=== PATIENT | male | born 1995 | race Caucasian/White ===

== ENCOUNTER 2018-02-21 15:23 | Inpatient (IN) | payer OTHER ==
[2018-02-21] MEDS ORDERED: HYDROmorphONE/DILAUDID 1 MG/ML INJ IVP ONE (15:28)
[2018-02-21 15:50] LABS: PLATELET COUNT 292 10^3/uL (150-400)
[2018-02-21 15:58] LABS: INR 1.13 (0.83-1.16); PROTIME(PATIENT) 14.7 SEC (12.0-15.0)
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
[2018-02-21] MEDS ORDERED: ONDANSETRON DISINTEGRATING 4 MG TAB PO PRN (16:37)
[2018-02-21] MEDS ORDERED: ONDANSETRON 4 MG/2 ML VIAL IVP PRN (16:37)
[2018-02-21] MEDS ORDERED: ACETAMINOPHEN 325 MG TAB PO PRN (16:37)
[2018-02-21] MEDS ORDERED: TETANUS, DIPHTHERIA TOX (7YR+) 0.5 ML INJ IM ONE (16:42)
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
[2018-02-21] MEDS: HYDROCODONE/APAP 5/325 TAB PO PRN ×2 (17:50→18:57)
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
[2018-02-21] MEDS: IBUPROFEN 600 MG TAB PO SCH (22:18)
[2018-02-21] MEDS: BACITRACIN ZINC 14.2 GM OINTTUBE TP SCH (22:19)
[2018-02-22] MEDS: HYDROCODONE/APAP 5/325 TAB PO PRN ×3 (01:12→12:35)
[2018-02-22] MEDS: IBUPROFEN 600 MG TAB PO SCH ×4 (06:07→22:25)
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
[2018-02-22] MEDS ORDERED: LIDO/EPI 1% **Not for Epidural 20 ML MDV ONE (10:02)
[2018-02-22] MEDS ORDERED: LIDOCAINE 1% 300 MG/30 ML SDV ONE (10:02)
--- NOTE | 2018-02-22 10:14 | SOAPPROG ---
SOAP Progress Note Assessment/Plan: Assessment: Left lateral tibial plateau fx, medial condyle femur fx Plan: OR tomorrow at 7:30 for ORIF NWB LLE NPO at midnight 02/22/18 10:13 Subjective: pain in left knee Objective: Vital Signs Temp Pulse Resp BP Pulse Ox 37 C 100 14 138/75 H 95 02/22/18 09:59 02/22/18 09:59 02/22/18 09:59 02/22/18 09:59 02/22/18 09:59 02/21/18 02/22/18 02/23/18 05:59 05:59 05:59 Intake Total 475 Output Total 700 Balance -225 PT 14.7 SEC (12.0-15.0) 02/21/18 15:39 INR 1.13 (0.83-1.16) 02/21/18 15:39 in splint ICD10 Worksheet Patient Problems: Problems Problem Status Onset Femoral distal fracture Acute Pneumothorax on right Acute Ribs, multiple fractures Acute Right pulmonary contusion Acute Tibial plateau fracture, left Acute
[2018-02-22] MEDS ORDERED: NS 500 ML IV ONE (10:18)
[2018-02-22] MEDS ORDERED: fentaNYL 100 MCG/2 ML INJ ONE (10:20)
[2018-02-22] MEDS ORDERED: MIDAZOLAM 2 MG/2 ML VIAL ONE (10:20)
[2018-02-22] MEDS ORDERED: MIDAZOLAM 2 MG/2 ML VIAL IVP ONE (10:45)
[2018-02-22] MEDS ORDERED: fentaNYL 100 MCG/2 ML INJ IVP ONE (10:45)
--- NOTE | 2018-02-22 11:12 | POSTOPPROG ---
Post Op Note Date of Operation: 02/22/18 Surgeon: Hitesh Saavedra Anesthesia: IV Sedation Pre-op Diagnosis: RT HEMO-PNEUMO Post-op Diagnosis: SAME Indication: ENLARGING HEMO-PNEUMO, PENDING GEN ANESTH Procedure: RT TUBE THORACOSTOMY Findings: SYMMETRIC BS Inf/Abcess present in the surg proc area at time of surgery?: No Depth: Organ Space EBL: Minimal Complications: 0 Drains: Constavac
--- NOTE | 2018-02-22 11:43 | GOP ---
[f rep st] OPERATIVE REPORT DATE OF OPERATION: 02/22/2018 SURGEON: Hitesh Saavedra MD PREOPERATIVE DIAGNOSIS: Enlarging hemopneumothorax on the right and rib fractures. POSTOPERATIVE DIAGNOSIS: Enlarging hemopneumothorax on the right and rib fractures. PROCEDURE PERFORMED: Right tube thoracostomy. FINDINGS: Patient was found to have resolution of pneumothorax with minimal hemothorax drainage. Ch est x-ray is pending. DESCRIPTION OF PROCEDURE: Patient was in the special procedure room and received IV sedation with Ve rsed and fentanyl. Anesthetized with 1% Xylocaine. A short incision made in the 6th intercostal spa ce in the midaxillary line. Dissection carried down to the intercostal muscles, which were then pene trated bluntly releasing pneumothorax and some old blood. A 24 chest tube was inserted without diffi culty and secured to the exit site with 2-0 silk suture and connected to a Pleur-Evac drainage system . The wound was dressed and secured with tape. He tolerated the procedure quite well. There were n o complications. /[id number]/MODL
[2018-02-22] MEDS: BACITRACIN ZINC 14.2 GM OINTTUBE TP SCH ×2 (12:28→22:25)
[2018-02-22] MEDS ORDERED: ceFAZolin 2 GM/DEXTROSE 100 ML IV ONE (15:52)
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
[2018-02-22] MEDS: oxyCODONE IR 5 MG TAB PO PRN (18:12)
--- NOTE | 2018-02-22 20:51 | SOAPPROG ---
SOAP Progress Note Assessment/Plan: Assessment: seen today with my paMichelle/ please refer to her note quite comfortable despite multiple rib fxs and tib plateau fx bs decreased on the right cxr shows enlarging hemo-pneumo in light of pending general anesthesia recommend chest tube placement prop/ risks and options fully discussed Plan:right tube thoracostomy 02/22/18 20:48 Objective: Vital Signs Temp Pulse Resp BP Pulse Ox 36.7 C 69 19 117/78 98 02/22/18 15:21 02/22/18 15:21 02/22/18 15:21 02/22/18 15:21 02/22/18 15:21 02/21/18 02/22/18 02/23/18 05:59 05:59 05:59 Intake Total 475 250 Output Total 700 900 Balance -225 -650 PT 14.7 SEC (12.0-15.0) 02/21/18 15:39 INR 1.13 (0.83-1.16) 02/21/18 15:39 ICD10 Worksheet Patient Problems: Problems Problem Status Onset Femoral distal fracture Acute Pneumothorax on right Acute Ribs, multiple fractures Acute Right pulmonary contusion Acute Tibial plateau fracture, left Acute
[2018-02-23] MEDS: oxyCODONE IR 5 MG TAB PO PRN ×2 (00:54→11:49)
[2018-02-23] MEDS ORDERED: LR 1,000 ML IV ONE (06:15)
[2018-02-23] MEDS ORDERED: BUPIVACAINE/EPI 0.5% 30 ML SDV ONE (06:50)
[2018-02-23] MEDS ORDERED: ceFAZolin 2 GM/DEXTROSE 100 ML IV ONE (07:00)
--- NOTE | 2018-02-23 07:09 | SOAPPROG ---
SOAP Progress Note Assessment/Plan: Assessment: Left lateral tibial plateau fx, medial condyle femur fx Plan: OR today for ORIF NWB LLE NPO at midnight 02/22/18 10:13 02/23/18 07:08 Subjective: pain controlled Objective: Vital Signs Temp Pulse Resp BP Pulse Ox 37 C 101 H 17 124/79 H 97 02/23/18 06:38 02/23/18 06:38 02/23/18 06:38 02/23/18 06:38 02/23/18 06:38 02/22/18 02/23/18 02/24/18 05:59 05:59 05:59 Intake Total 475 250 Output Total 700 900 Balance -225 -650 PT 14.7 SEC (12.0-15.0) 02/21/18 15:39 INR 1.13 (0.83-1.16) 02/21/18 15:39 splint intact ICD10 Worksheet Patient Problems: Problems Problem Status Onset Femoral distal fracture Acute Pneumothorax on right Acute Ribs, multiple fractures Acute Right pulmonary contusion Acute Tibial plateau fracture, left Acute
[2018-02-23] MEDS ORDERED: MIDAZOLAM 2 MG/2 ML VIAL IVP ONE (07:13)
[2018-02-23] MEDS ORDERED: MIDAZOLAM 2 MG/2 ML VIAL ONE (07:14)
--- NOTE | 2018-02-23 07:14 | PDANEPAE ---
ANE Past Medical History - Cardiovascular History Hx Hypertension: No Hx Arrhythmias: No Hx Chest Pain: No Hx Coronary Artery / Peripheral Vascular Disease: No Hx CHF / Valvular Disease: No Hx Palpitations: No - Pulmonary History Hx COPD: No Hx Asthma/Reactive Airway Disease: No Hx Recent Upper Respiratory Infection: No Hx Oxygen in Use at Home: No Hx Sleep Apnea: No Sleep Apnea Screening Result - Last Documented: Positive Pulmonary History Comment: Pneumothorax, right, chest tube in place - Endocrine History Hx Diabetes: No Hypothyroid: No Hyperthyroid: No Obesity: no ANE Review of Systems Review of Systems: ANE Patient History - Allergies Allergies/Adverse Reactions: No Known Allergies Allergy (Unverified 02/21/18 15:34) - Home Medications Home Medications: NK [No Known Home Meds] 02/21/18 [Last Taken Unknown] - NPO status NPO Since - Liquids (Date): 02/23/18 NPO Since - Liquids (Time): 00:00 NPO Since - Solids (Date): 02/23/18 NPO Since - Solids (Time): 00:00 - Smoking Hx Smoking Status: Never smoked ANE Labs/Vital Signs - Labs Result Diagrams: 02/21/18 15:39 - Vital Signs Blood Pressure: 124/79 Heart Rate: 101 Respiratory Rate: 17 O2 Sat (%): 97 Height: 190.5 cm Weight: 65.771 kg ANE Physical Exam - Airway Neck exam: FROM Mallampati Score: Class 1 Mouth exam: normal dental/mouth exam - Pulmonary Pulmonary: no respiratory distress - Cardiovascular Cardiovascular: regular rate and rhythym - ASA Status ASA Status: III ANE Anesthesia Plan Anesthesia Plan: GA w LMA
[2018-02-23] MEDS ORDERED: PROPOFOL 200 MG/20 ML VIAL ONE ×2 (07:24)
[2018-02-23] MEDS ORDERED: fentaNYL 250 MCG/5 ML INJ ONE (07:24)
[2018-02-23] MEDS ORDERED: LIDOCAINE 2% 5 ML SDV ONE (07:26)
[2018-02-23] MEDS ORDERED: ONDANSETRON 4 MG/2 ML VIAL ONE (07:48)
[2018-02-23] MEDS ORDERED: DEXAMETHASONE 4 MG/ML VIAL ONE (07:48)
[2018-02-23] MEDS ORDERED: PHENYLEPHRINE HCL 100 MCG/ML SYR ONE (07:52)
[2018-02-23] MEDS ORDERED: ePHEDrine SULFATE 25 MG/5 ML SYR ONE (07:57)
[2018-02-23] MEDS ORDERED: HYDROmorphONE/DILAUDID 2 MG/ML INJ ONE (09:00)
--- NOTE | 2018-02-23 09:22 | POSTOPPROG ---
Post Op Note Date of Operation: 02/23/18 Surgeon: Eduardo Puri Air Pollution Compliance Inspector: Elinor Anesthesiologist: Anesthesia: GET(General Endotracheal) Pre-op Diagnosis: left tibial plateau fx Post-op Diagnosis: same Indication: above Procedure: orif L plateau fx Inf/Abcess present in the surg proc area at time of surgery?: No EBL: 50-100
[2018-02-23] MEDS ORDERED: KETOROLAC 30 MG/1 ML SDV ONE (09:34)
[2018-02-23] MEDS ORDERED: PROMETHAZINE HCL 25 MG/ML INJ IVP PRN (09:58)
[2018-02-23] MEDS ORDERED: LR 500 ML IV PRN (09:58)
[2018-02-23] MEDS ORDERED: NALOXONE HCL 0.4 MG/ML INJ IVP PRN (09:58)
[2018-02-23] MEDS ORDERED: fentaNYL 100 MCG/2 ML INJ IVP PRN (09:58)
--- NOTE | 2018-02-23 10:00 | POSTANESTH ---
Post Anesthetic Evaluation Cardiovascular Status: Normal, Stable Respiratory Status: Normal, Stable Level of Consciousness/Mental Status: Mildly Sleepy, Arousable Pain Control: Adequate, Prn Tx Ordered Nausea/Vomiting Control: Adequate, Prn Tx Ordered Complications Possibly Related to Anesthesia: None Noted
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
[2018-02-23] MEDS: BACITRACIN ZINC 14.2 GM OINTTUBE TP SCH ×2 (12:40→20:04)
[2018-02-23] MEDS: IBUPROFEN 600 MG TAB PO SCH ×3 (12:40→22:26)
[2018-02-23] MEDS ORDERED: NS 500 ML IV ONE (13:21)
[2018-02-23] MEDS: HYDROmorphONE/DILAUDID 2 MG TAB PO PRN ×3 (13:52→22:27)
[2018-02-23] MEDS: LIDOCAINE 4%/MENTHOL 1% PATCH TD SCH (13:52)
--- NOTE | 2018-02-23 14:03 | TRAUMAPNT ---
Trauma Tertiary Progress Note New Findings: No new findings Assessment/Plan: PAD#2 02/23/2018 Assessment: Pain control is an issue. Chest: No air leak, tiny apical PTX on CXR, 200 cc out in last 24 hours Urine output low and mild increase in HR noted Knee: Per Dr. Puri Plan: Meds adjusted Will encourage po intake and will give IV NS bolus Continue chest tube suction and reassess with CXR and output Subjective: No complaints ( at this point the family and nurse indicate that he is a stoic and is not reporting actual pain level) Flatus but no stool Objective: Vital Signs Temp Pulse Resp BP Pulse Ox 36.6 C 101 H 17 124/74 H 96 02/23/18 13:04 02/23/18 13:04 02/23/18 13:04 02/23/18 13:04 02/23/18 13:04 02/22/18 02/23/18 02/24/18 05:59 05:59 05:59 Intake Total 338 021 3827 Output Total 700 900 100 Balance -225 -650 1710 PT 14.7 SEC (12.0-15.0) 02/21/18 15:39 INR 1.13 (0.83-1.16) 02/21/18 15:39 Physical Exam - Physical Exam General Appearance: WD/WN, alert, no apparent distress Neck: non-tender, full range of motion, supple Respiratory: lungs clear, normal breath sounds Cardiac/Chest: regular rate, rhythm Abdomen: normal bowel sounds, non-tender, soft Male Genitalia: deferred Rectal: deferred Back: Normal inspection Skin: normal color, warm/dry Extremities: normal range of motion, non-tender, other (Knee immobilizer on left leg) Neuro/Psych: no motor/sensory deficits, alert, normal mood/affect, oriented x 3 Time Spent w/Patient (minutes): 25
[2018-02-23 14:47] LABS: PLATELET COUNT 132 10^3/uL (150-400)
[2018-02-23] MEDS: ACETAMINOPHEN 500 MG TAB PO SCH ×2 (15:42→22:26)
[2018-02-23] MEDS ORDERED: LIDOCAINE 2% JELLY 20 ML (UROJECT) ONE (17:22)
[2018-02-23] MEDS: PATCH REMOVAL 1 EA PATCH TD SCH (20:04)
[2018-02-24] MEDS: HYDROmorphONE/DILAUDID 2 MG TAB PO PRN ×5 (03:07→23:06)
[2018-02-24] MEDS: CYCLOBENZAPRINE 10 MG TAB PO PRN ×2 (04:23→14:26)
[2018-02-24] MEDS: IBUPROFEN 600 MG TAB PO SCH ×3 (05:52→21:07)
[2018-02-24] MEDS: ACETAMINOPHEN 500 MG TAB PO SCH ×3 (05:52→21:07)
[2018-02-24] MEDS: LIDOCAINE 4%/MENTHOL 1% PATCH TD SCH (09:41)
[2018-02-24] MEDS: BACITRACIN ZINC 14.2 GM OINTTUBE TP SCH ×2 (09:41→21:08)
--- NOTE | 2018-02-24 16:53 | SOAPPROG ---
SOAP Progress Note Assessment/Plan: Assessment: Left lateral tibial plateau fx, medial condyle femur fx s/p orif Plan: non weight bearing Left leg ice elevate keep dry may remove brace when at rest f/u with me in 1 week Subjective: pain in knee Objective: Vital Signs Temp Pulse Resp BP Pulse Ox 36.8 C 101 H 18 125/68 H 98 02/24/18 16:00 02/24/18 16:00 02/24/18 16:00 02/24/18 16:00 02/24/18 16:00 Laboratory Results 02/23/18 14:10 02/24/18 05:05 02/23/18 02/24/18 02/25/18 05:59 05:59 05:59 Intake Total 250 3110 Output Total 900 2350 650 Balance -650 760 -650 PT 14.7 SEC (12.0-15.0) 02/21/18 15:39 INR 1.13 (0.83-1.16) 02/21/18 15:39 dressing cdi ICD10 Worksheet Patient Problems: Problems Problem Status Onset Femoral distal fracture Acute Pneumothorax on right Acute Ribs, multiple fractures Acute Right pulmonary contusion Acute Tibial plateau fracture, left Acute
--- NOTE | 2018-02-24 19:52 | TRAUMAPN ---
Trauma Progress Note Assessment/Plan: PAD#2 02/23/2018 Assessment: Pain control is an issue. Chest: No air leak, tiny apical PTX on CXR, 200 cc out in last 24 hours Urine output low and mild increase in HR noted Knee: Per Dr. Puri Plan: Meds adjusted Will encourage po intake and will give IV NS bolus Continue chest tube suction and reassess with CXR and output 02/24/2018 Assessment: CXR- lung up! No stool. Plan: Off suction qand check CXR tomorrow afternoon Will suggest gentle physic ( one quart Apple juice over 10 minutes) Subjective: No bowel movements Objective: Vital Signs Temp Pulse Resp BP Pulse Ox 36.8 C 101 H 18 125/68 H 98 02/24/18 16:00 02/24/18 16:00 02/24/18 16:00 02/24/18 16:00 02/24/18 16:00 Laboratory Results 02/23/18 14:10 02/24/18 05:05 02/23/18 02/24/18 02/25/18 05:59 05:59 05:59 Intake Total 250 3110 3000 Output Total 900 2350 2000 Balance -053 568 6923 PT 14.7 SEC (12.0-15.0) 02/21/18 15:39 INR 1.13 (0.83-1.16) 02/21/18 15:39 Physical Exam - Physical Exam General Appearance: WD/WN, alert, no apparent distress Neck: full range of motion, supple, normal inspection Respiratory: lungs clear, normal breath sounds Cardiac/Chest: regular rate, rhythm Abdomen: normal bowel sounds, non-tender, soft Male Genitalia: deferred Rectal: deferred Back: Normal inspection Skin: normal color, warm/dry Extremities: normal range of motion, non-tender, normal inspection Neuro/Psych: no motor/sensory deficits, alert, normal mood/affect, oriented x 3 Time Spent w/Patient (minutes): 15
[2018-02-24] MEDS: PATCH REMOVAL 1 EA PATCH TD SCH (21:07)
[2018-02-25] MEDS: HYDROmorphONE/DILAUDID 2 MG TAB PO PRN (03:41)
[2018-02-25] MEDS: IBUPROFEN 600 MG TAB PO SCH (05:50)
[2018-02-25] MEDS: ACETAMINOPHEN 500 MG TAB PO SCH ×3 (05:51→23:10)
[2018-02-25] MEDS ORDERED: NS 500 ML IV ONE (09:00)
[2018-02-25 09:09] LABS: PLATELET COUNT 165 10^3/uL (150-400)
[2018-02-25] MEDS: LIDOCAINE 4%/MENTHOL 1% PATCH TD SCH (10:41)
[2018-02-25] MEDS: HYDROmorphONE/DILAUDID 4 MG TAB PO PRN ×3 (10:43→20:43)
[2018-02-25] MEDS: OXYMETAZOLINE 30 ML NASAL SPRAY EACHNARE SCH ×2 (10:48→20:29)
[2018-02-25] MEDS: BACITRACIN ZINC 14.2 GM OINTTUBE TP SCH ×2 (10:50→20:29)
[2018-02-25] MEDS ORDERED: IBUPROFEN 600 MG TAB PO SCH (12:00)
[2018-02-25] MEDS: IBUPROFEN 200 MG TAB PO SCH ×3 (13:28→23:10)
--- NOTE | 2018-02-25 14:33 | ASMTCMCOM ---
CM Note CM Note Notes: PT/OT rec home, [facility] rec follow up call. Pt to d/c independent [facility] notified pt he can access classroom accommodations through [facility] and OT informed pt he may need to contact disability services for assistance with mobility around campus. CM will follow. Date Signed: 02/25/2018 02:32 PM Electronically Signed By:EVERARDO Simmons
--- NOTE | 2018-02-25 17:13 | SOAPPROG ---
SOAP Progress Note Assessment/Plan: Assessment: Left lateral tibial plateau fx, medial condyle femur fx s/p orif Plan: non weight bearing Left leg ice elevate keep dry may remove brace when at rest f/u with me in 1 week Subjective: pain improving Objective: Vital Signs Temp Pulse Resp BP Pulse Ox 36.9 C 92 14 130/74 H 99 02/25/18 15:53 02/25/18 15:53 02/25/18 15:53 02/25/18 15:53 02/25/18 15:53 Laboratory Results 02/25/18 09:00 02/24/18 05:05 02/24/18 02/25/18 02/26/18 05:59 05:59 05:59 Intake Total 3110 4600 Output Total 2350 2805 Balance 760 1795 PT 14.7 SEC (12.0-15.0) 02/21/18 15:39 INR 1.13 (0.83-1.16) 02/21/18 15:39 rom 20-60 deg ICD10 Worksheet Patient Problems: Problems Problem Status Onset Femoral distal fracture Acute Pneumothorax on right Acute Ribs, multiple fractures Acute Right pulmonary contusion Acute Tibial plateau fracture, left Acute
--- NOTE | 2018-02-25 18:51 | TRAUMAPN ---
Trauma Progress Note Assessment/Plan: PAD#2 02/23/2018 Assessment: Pain control is an issue. Chest: No air leak, tiny apical PTX on CXR, 200 cc out in last 24 hours Urine output low and mild increase in HR noted Knee: Per Dr. Puri Plan: Meds adjusted Will encourage po intake and will give IV NS bolus Continue chest tube suction and reassess with CXR and output 02/24/2018 Assessment: CXR- lung up! No stool. Plan: Off suction and check CXR tomorrow afternoon Will suggest gentle physic ( one quart Apple juice over 10 minutes) PAD#4 02/25/2018 Assessment; Chest: No air leak, minimal chest tube output. There is a tiny residual PTX. Chest tube removed as I do not feel that the chest tube will address the tiny PTX. The family understands that a PTX tube may have to be placed anteriorly. Short course of Afrin worked well to decrease nasal congestion. No stool yet Plan: F/u CXR in 24 hours. Hope to be able to discharge to [place] on Thursday Will try more aggressive approach with a physic Subjective: I feel much better Objective: Vital Signs Temp Pulse Resp BP Pulse Ox 36.9 C 92 14 130/74 H 99 02/25/18 15:53 02/25/18 15:53 02/25/18 15:53 02/25/18 15:53 02/25/18 15:53 Laboratory Results 02/25/18 09:00 02/24/18 05:05 02/24/18 02/25/18 02/26/18 05:59 05:59 05:59 Intake Total 3110 4600 Output Total 2350 2805 Balance 760 1795 PT 14.7 SEC (12.0-15.0) 02/21/18 15:39 INR 1.13 (0.83-1.16) 02/21/18 15:39 Physical Exam - Physical Exam General Appearance: WD/WN, alert, no apparent distress Respiratory: chest non-tender, lungs clear, normal breath sounds Cardiac/Chest: regular rate, rhythm Abdomen: normal bowel sounds, non-tender, soft Male Genitalia: deferred Rectal: deferred Back: Normal inspection Skin: normal color, warm/dry Extremities: other (left knee brace in place) Neuro/Psych: no motor/sensory deficits, alert, normal mood/affect, oriented x 3 Time Spent w/Patient (minutes): 25
[2018-02-25] MEDS ORDERED: MAGNESIUM CITRATE 300 ML BOTTLE PO ONE (18:54)
[2018-02-25] MEDS: POLYETHYLENE GLYCOL 3350 17 GM PKT PO SCH (20:29)
[2018-02-25] MEDS: PATCH REMOVAL 1 EA PATCH TD SCH (20:30)
[2018-02-26] MEDS: HYDROmorphONE/DILAUDID 4 MG TAB PO PRN ×3 (02:46→15:01)
[2018-02-26] MEDS: IBUPROFEN 200 MG TAB PO SCH ×4 (06:03→23:21)
[2018-02-26] MEDS: ACETAMINOPHEN 500 MG TAB PO SCH ×2 (06:03→15:01)
[2018-02-26] MEDS: BACITRACIN ZINC 14.2 GM OINTTUBE TP SCH ×2 (08:12→21:55)
[2018-02-26] MEDS: OXYMETAZOLINE 30 ML NASAL SPRAY EACHNARE SCH ×2 (08:13→21:55)
[2018-02-26] MEDS: POLYETHYLENE GLYCOL 3350 17 GM PKT PO SCH ×2 (08:14→22:02)
[2018-02-26] MEDS: LIDOCAINE 4%/MENTHOL 1% PATCH TD SCH (08:16)
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
[2018-02-26] MEDS: HYDROmorphONE/DILAUDID 2 MG TAB PO PRN ×2 (19:19→23:21)
[2018-02-26] MEDS: PATCH REMOVAL 1 EA PATCH TD SCH (21:55)
[2018-02-27] MEDS: HYDROmorphONE/DILAUDID 2 MG TAB PO PRN ×4 (04:11→16:18)
[2018-02-27] MEDS: ACETAMINOPHEN 500 MG TAB PO SCH ×3 (04:39→13:41)
[2018-02-27] MEDS: IBUPROFEN 200 MG TAB PO SCH ×2 (06:26→12:08)
[2018-02-27 09:50] VITALS: BP 122/68
[2018-02-27] MEDS: LIDOCAINE 4%/MENTHOL 1% PATCH TD SCH (09:53)
[2018-02-27] MEDS: CYCLOBENZAPRINE 10 MG TAB PO PRN (10:21)
[2018-02-27] MEDS: BACITRACIN ZINC 14.2 GM OINTTUBE TP SCH (10:21)
[2018-02-27] MEDS: POLYETHYLENE GLYCOL 3350 17 GM PKT PO SCH (10:26)
--- NOTE | 2018-02-27 11:34 | TRAUMAPN ---
Trauma Progress Note Assessment/Plan: PAD#2 02/23/2018 Assessment: Pain control is an issue. Chest: No air leak, tiny apical PTX on CXR, 200 cc out in last 24 hours Urine output low and mild increase in HR noted Knee: Per Dr. Puri Plan: Meds adjusted Will encourage po intake and will give IV NS bolus Continue chest tube suction and reassess with CXR and output 02/24/2018 Assessment: CXR- lung up! No stool. Plan: Off suction and check CXR tomorrow afternoon Will suggest gentle physic ( one quart Apple juice over 10 minutes) PAD#4 02/25/2018 Assessment; Chest: No air leak, minimal chest tube output. There is a tiny residual PTX. Chest tube removed as I do not feel that the chest tube will address the tiny PTX. The family understands that a PTX tube may have to be placed anteriorly. Short course of Afrin worked well to decrease nasal congestion. No stool yet Plan: F/u CXR in 24 hours. Hope to be able to discharge to [facility] on Thursday Will try more aggressive approach with a physic PAD#6 02/27/2018 Assessment: Lung up on CXR, minimal effusion noted Plan: discharge when ortho agrees Objective: Vital Signs Temp Pulse Resp BP Pulse Ox 37 C 72 16 122/68 H 97 02/27/18 08:00 02/27/18 08:00 02/27/18 08:00 02/27/18 08:00 02/27/18 08:00 Laboratory Results 02/25/18 09:00 02/24/18 05:05 02/26/18 02/27/18 02/28/18 05:59 05:59 05:59 Intake Total 1500 1850 Output Total 800 700 Balance 700 1150 PT 14.7 SEC (12.0-15.0) 02/21/18 15:39 INR 1.13 (0.83-1.16) 02/21/18 15:39
--- NOTE | 2018-02-27 12:14 | GDS ---
[f rep st] DISCHARGE SUMMARY This is a conditional discharge. It depends upon Dr. Puri agreeing that he is set to go. DISPOSITION: To home, self-care. CONDITION: Good. DIETARY RECOMMENDATIONS: Are no restriction on his diet, but I have suggested he avoid bananas, rice, applesauce, and cheese. Texture is unrestricted. MEDICATIONS: Tylenol 1000 mg every 8 hours. He will use Flexeril 10 mg every 8 hours as needed for spasm and Dilaudid 2 mg every 4 hours as needed for pain. He will also use a Lidoderm patch. He will take MiraLAX 34 g twice a day for constipation. ACTIVITY: Nonweightbearing left leg. He will ice and elevate the knee. Keep it dry. He is to remove the brace when at rest. FOLLOWUP: He can follow up with Dr. Puri in 1 week. He will follow up with Dr. Fuentes in 1 week as well when she will remove the chest tube stitch. HOSPITAL COURSE: The patient was admitted. He has had right rib fractures with pneumothorax and hemo/hydrothorax. The pneumothorax finally resolved completely. The drainage of the chest tube minimized. The chest tube has now been out for about 40 hours, and there is a minimal right pleural effusion noted. I do not feel it needs to be addressed at this point. He underwent surgical correction of a left knee injury: 1) Left knee arthroscopy with removal of a foreign body 2) Left knee open treatment and arthroscopic treatrment of a medial femoral condyle fracture 3) Left knee open reduction, internal fixation of left tibial plateau fracture. He is comfortable from a pain standpoint. He originally had planned to go to [place], but now has decided it would make more sense to not go home, but rather stay in [place] to complete his physical therapy and his followup appointments with Dr. Puri and Dr. Fuentes. /[id number]/MODL MTDD
== END 2018-02-27 16:35 | disposition home or self-care (01) | DRG 958 ==
LOC: F3N 17:38
PROVIDERS: ADMIT Surgery; ATTEND Surgery
PROC: 0W9930Z Drainage of Right Pleural Cavity with Drainage Device, Percutaneous Approach (ICD-10-PCS; 2018-02-22)
PROC: 0QSH04Z Reposition Left Tibia with Internal Fixation Device, Open Approach (ICD-10-PCS; principal; 2018-02-23 07:15)
PROC: 0SCD4ZZ Extirpation of Matter from Left Knee Joint, Percutaneous Endoscopic Approach (ICD-10-PCS; principal; 2018-02-23 07:15)
PROC: 0QBC4ZZ Excision of Left Lower Femur, Percutaneous Endoscopic Approach (ICD-10-PCS; principal; 2018-02-23 07:15)
DX: S82.142A Displaced bicondylar fracture of left tibia, initial encounter for closed fracture (principal); S72.435A Nondisplaced fracture of medial condyle of left femur, initial encounter for closed fracture; S83.412A Sprain of medial collateral ligament of left knee, initial encounter; M23.42 Loose body in knee, left knee; S22.41XA Multiple fractures of ribs, right side, initial encounter for closed fracture; S27.321A Contusion of lung, unilateral, initial encounter; S27.2XXA Traumatic hemopneumothorax, initial encounter; V24.4XXA Motorcycle driver injured in collision with heavy transport vehicle or bus in traffic accident, initial encounter; Y92.414 Local residential or business street as the place of occurrence of the external cause; Y99.8 Other external cause status
CPT/HCPCS: 82435-PO; 82565-PO; 82947-PO; 84132-PO; 84295-PO; 84520-PO; 85014-PO; 92523-GN; 96374; 97116-GP; 97161-GP; 97165-GO; 97530-GP; 97535-GO; C1713; C1762; J0690; J1100; J1170; J1885; J2250; J2270; J2370; J2405; J2704; J3010; L1832

== ENCOUNTER → 2018-03-30 | Outpatient (CLI) | payer OTHER | LOC: FIMAGING 15:20 | PROVIDERS: ATTEND Surgery | DX: S22.41XA Multiple fractures of ribs, right side, initial encounter for closed fracture (principal); S27.0XXD Traumatic pneumothorax, subsequent encounter; S27.3 Other and unspecified injuries of lung ==